=== PATIENT | female | born 1965 | race Caucasian/White ===

== ENCOUNTER 2020-08-13 18:22 | Inpatient (IN) | payer OTHER ==
[2020-08-13] MEDS ORDERED: THIAMINE 100 MG/ML 2 ML VIAL IM STA (18:47)
[2020-08-13] MEDS ORDERED: SODIUM CHLORIDE 0.9% 1,000 ML IV STA (18:47)
--- NOTE | 2020-08-13 18:52 | ED ---
General Adult HPI - General Chief complaint: Alcohol Stated complaint: ETOH Time Seen by Provider: 08/13/20 18:33 Source: patient, EMS Mode of arrival: EMS Limitations: no limitations - History of Present Illness Initial comments: Dictation was produced using [employer] dictation software. please excuse any grammatical, word or spelling errors. This patient was cared for during a federal and state declared state of emergency secondary to Covid 19 Chief Complaint: 55-year-old female presents with EtOH intoxication History of Present Illness: Patient is 55-year-old female she presents today with EtOH intoxication. Patient tried to check in at [facility] re[facility] however she had a really high EtOH level. They redirected her to the emergency department. Patient states he drinks heavily daily. She drinks, supine of vodka daily. Patient denies ever having had alcohol withdrawals in the past. She otherwise feels well. She has no pain complaint. The ROS documented in this emergency department record has been reviewed and confirmed by me. Those systems with pertinent positive or negative responses have been documented in the HPI. All other systems are other negative and/or noncontributory. PHYSICAL EXAM: General Impression: Alert and oriented x3, not in acute distress, inebriated HEENT: Normocephalic atraumatic, extra-ocular movements intact, pupils equal and reactive to light bilaterally, mucous membranes moist. Cardiovascular: Heart regular rate and rhythm Chest: Able to complete full sentences, no retractions, no tachypnea Abdomen: abdomen soft, non-tender, non-distended, no organomegaly Musculoskeletal: Pulses present and equal in all extremities, no peripheral edema Motor: no focal deficits noted Neurological: CN II-XII grossly intact, no focal motor or sensory deficits noted Skin: Intact with no visualized rashes Psych: Normal affect and mood ED course: 55-year-old female presents with acute EtOH intoxication. Signs upon arrival shows findings within acceptable limits. Physical examination is benign. Laboratory evaluation obtained. Mild leukopenia 2.7. Platelets of 30. Metabolic panel is obtained. Magnesium 1.1. Serum alcohol 351. Patient given intravenous fluids. Patient given magnesium supplementation. Patient will be admitted for alcohol intoxication. Case is discussed with Renata Greer was willing to accept patients care on behalf of [facility] hospitalist group. CIWA protocol ordered and Ativan total, ordered. she is agreeable with admission. - Related Data Home Medications Medication Instructions Recorded Confirmed Levothyroxine Sodium [Synthroid] 225 mcg PO QAM 08/13/20 08/13/20 Allergies Allergy/AdvReac Type Severity Reaction Status Date / Time No Known Allergies Allergy Verified 08/13/20 19:25 Review of Systems ROS Statement: Those systems with pertinent positive or pertinent negative responses have been documented in the HPI. ROS Other: All systems not noted in ROS Statement are negative. Past Medical History Past Medical History: No Reported History History of Any Multi-Drug Resistant Organisms: None Reported Past Surgical History: Appendectomy, Section Smoking Status: Never smoker Past Alcohol Use History: Abuse, Daily Past Drug Use History: None Reported General Exam Limitations: no limitations Course Vital Signs 08/13/20 18:28 Temperature 98.5 F Pulse Rate 67 Respiratory 18 Rate Blood Pressure 139/81 O2 Sat by Pulse 98 Oximetry Medical Decision Making - Lab Data Result diagrams: 08/13/20 19:11 08/13/20 19:11 Lab Results 08/13/20 08/13/20 Range/Units 19:11 19:11 WBC 3.7 L (3.8-10.6) k/uL RBC 4.47 (3.80-5.40) m/uL Hgb 14.2 (11.4-16.0) gm/dL Hct 43.4 (34.0-46.0) % MCV 97.0 (80.0-100.0) fL MCH 31.7 (25.0-35.0) pg MCHC 32.7 (31.0-37.0) g/dL RDW 14.1 (11.5-15.5) % Plt Count 30 L (150-450) k/uL Neutrophils % 55 % Lymphocytes % 32 % Monocytes % 7 % Eosinophils % 2 % Basophils % 2 % Neutrophils # 2.1 (1.3-7.7) k/uL Lymphocytes # 1.2 (1.0-4.8) k/uL Monocytes # 0.3 (0-1.0) k/uL Eosinophils # 0.1 (0-0.7) k/uL Basophils # 0.1 (0-0.2) k/uL Manual Slide Review Performed Poikilocytosis (manual Present Anisocytosis (manual) Present Sodium 142 (137-145) mmol/L Potassium 4.2 (3.5-5.1) mmol/L Chloride 108 H (98-107) mmol/L Carbon Dioxide 22 (22-30) mmol/L Anion Gap 12 mmol/L BUN 9 (7-17) mg/dL Creatinine 0.62 (0.52-1.04) mg/dL Est GFR (CKD-EPI)AfAm >90 (>60 ml/min/1.73 sqM) Est GFR (CKD-EPI)NonAf >90 (>60 ml/min/1.73 sqM) Glucose 94 (74-99) mg/dL Calcium 7.8 L (8.4-10.2) mg/dL Magnesium 1.1 L (1.6-2.3) mg/dL Total Bilirubin 1.8 H (0.2-1.3) mg/dL AST 162 H (14-36) U/L ALT 29 (4-34) U/L Alkaline Phosphatase 165 H (38-126) U/L Total Protein 8.0 (6.3-8.2) g/dL Albumin 4.0 (3.5-5.0) g/dL Lipase 270 (23-300) U/L Serum Alcohol 351 H* mg/dL Disposition Clinical Impression: Alcoholic intoxication Disposition: ADMITTED IP TO THIS [facility] Condition: Fair Referrals: Roshan Mcfarland DO [Primary Care Provider] - 1-2 days Decision Time: 21:14
[2020-08-13 19:56] LABS: ALT 29 U/L (4-34); AST 162 U/L (14-36); African American GFR (CKD) >90 (>60 ml/min/1.73 sqM); Alkaline Phosphatase 165 U/L (38-126); Anion Gap 12 mmol/L; Blood Urea Nitrogen 9 mg/dL (7-17); Calcium 7.8 mg/dL (8.4-10.2); Carbon Dioxide 22 mmol/L (22-30); Chloride 108 mmol/L (98-107); Glucose 94 mg/dL (74-99); Lipase 270 U/L (23-300); Magnesium 1.1 mg/dL (1.6-2.3); Non-African American GFR(CKD) >90 (>60 ml/min/1.73 sqM); Potassium 4.2 mmol/L (3.5-5.1); Sodium 142 mmol/L (137-145); Total Bilirubin 1.8 mg/dL (0.2-1.3)
[2020-08-13 20:18] LABS: Alcohol 351 mg/dL
[2020-08-13 20:30] LABS: Basophils # (A) 0.1 k/uL (0-0.2); Basophils % (A) 2 %; Eosinophils # (A) 0.1 k/uL (0-0.7); Eosinophils % (A) 2 %; HCT 43.4 % (34.0-46.0); HGB 14.2 gm/dL (11.4-16.0); Lymphocytes # (A) 1.2 k/uL (1.0-4.8); Lymphocytes % (A) 32 %; MCH 31.7 pg (25.0-35.0); MCHC 32.7 g/dL (31.0-37.0); Mean Platelet Volume 9.3; Monocytes # (A) 0.3 k/uL (0-1.0); Monocytes % (A) 7 %; Neutrophils # (A) 2.1 k/uL (1.3-7.7); Neutrophils % (A) 55 %; RBC 4.47 m/uL (3.80-5.40); RDW 14.1 % (11.5-15.5); WBC 3.7 k/uL (3.8-10.6)
[2020-08-13 21:06] LABS: Anisocytosis (M) Present; Poikilocytosis (M) Present
[2020-08-13 21:07] LABS: Platelet Count 30 k/uL (150-450)
[2020-08-13] MEDS ORDERED: NALOXONE 0.4 MG/ML 1 ML VIAL IV PRN (21:14)
[2020-08-13] MEDS: MAGNESIUM SULFATE-D5W PMX 1 GM in DEXTROSE/WATER 1 100ML.BAG IVPB SCH (22:50)
[2020-08-14] MEDS: SODIUM CHLORIDE 0.9% 1,000 ML IV SCH ×3 (00:28→17:24)
[2020-08-14] MEDS: MAGNESIUM SULFATE-D5W PMX 1 GM in DEXTROSE/WATER 1 100ML.BAG IVPB SCH ×4 (00:29→13:25)
[2020-08-14] MEDS: LEVOTHYROXINE 75 MCG TAB PO SCH (06:28)
[2020-08-14] MEDS: THIAMINE 100 MG TAB PO SCH ×2 (08:16→17:23)
[2020-08-14] MEDS: LORazepam 2 MG/ML INJ IV PRN ×3 (12:53→22:08)
[2020-08-14 13:24] LABS: African American GFR (CKD) >90 (>60 ml/min/1.73 sqM); Anion Gap 11 mmol/L; Blood Urea Nitrogen 7 mg/dL (7-17); Carbon Dioxide 21 mmol/L (22-30); Chloride 103 mmol/L (98-107); Glucose 114 mg/dL (74-99); Potassium 4.2 mmol/L (3.5-5.1); Sodium 135 mmol/L (137-145)
[2020-08-14 13:25] LABS: Calcium 7.3 mg/dL (8.4-10.2); Non-African American GFR(CKD) >90 (>60 ml/min/1.73 sqM)
--- NOTE | 2020-08-14 21:29 | P.HPIM ---
History of Present Illness H&P Date: 08/14/20 Patient is a 55-year-old female with a known history of withdrawal seizures, bipolar disorder, daily alcohol abuse, drinks a pint of vodka daily and hypothyroidism presents to ER with alcohol intoxication. Patient try to check in at [facility] however she had a really high alcohol level. They directed her to the emergency room. Patient does drink on a daily basis. Denied any chest pain or shortness breath. No nausea vomiting or abdominal pain or diarrhea. Laboratory data showed WBC 3.7, platelets 30 and hemoglobin 14.2 Sodium 142, potassium 4.2, calcium 7.8, magnesium 1.1, bilirubin 1.8, AST 162 and ALT 29 Alk phos 165 total alcohol level 351 Review of Systems Constitutional: Patient denies any fever or chills . No generalized weakness or weight loss. Abdomen: Patient denied nausea vomiting and diarrhea and abdominal pain. Cardiovascular: Patient denies any chest pain or short of breath no palpitations. Respiratory: patient denied any cough or sputum production. No shortness of breath Neurologic: Patient denied any numbness or tingling headache. Musculoskeletal: Patient denies any complaints of joint swelling or deformity. Complete review of systems could not be obtained from the patient. 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 Past Drug Use History: None Reported - Past Family History Mother Family Medical History: Hypertension Father Family Medical History: No Reported History Medications and Allergies Home Medications Medication Instructions Recorded Confirmed Type Levothyroxine Sodium [Synthroid] 225 mcg PO QAM 08/13/20 08/13/20 History Allergies Allergy/AdvReac Type Severity Reaction Status Date / Time No Known Allergies Allergy Verified 08/13/20 19:25 Physical Exam Vitals: Vital Signs Temp Pulse Pulse Resp BP BP Pulse Ox 08/14/20 08:13 98.3 F 79 16 131/78 97 08/14/20 03:42 98.6 F 78 16 110/64 97 08/13/20 23:40 98 F 72 16 117/72 98 08/13/20 22:51 98.1 F 73 18 111/82 98 08/13/20 21:25 71 16 105/63 99 08/13/20 18:28 98.5 F 67 18 139/81 98 Intake and Output 08/13/20 08/14/20 08/14/20 22:59 06:59 14:59 Other: Voiding Method Toilet # Voids 1 1 1 Weight 61.235 kg PHYSICAL EXAMINATION: Patient is lying in the bed comfortably, no acute distress, awake alert and oriented.. HEENT: Normocephalic. Neck is supple. Pupils reactive. Nostrils clear. Oral cavity is moist. Ears reveal no drainage. Patient is lethargic and drowsy. Neck reveals no JVD, carotid bruits, or thyromegaly. CHEST EXAMINATION: Trachea is central. Symmetrical expansion. Bibasilar diminished air entry. Lung brito clear to auscultation and percussion. CARDIAC: Normal S1, S2 with no gallops. No murmurs ABDOMEN: Soft. Bowel sounds normal. No organomegaly. No abdominal bruits. Extremities: reveal no edema. No clubbing or cyanosis Neurologically awake, alert, oriented x2-3 with well-coordinated movements. No focal deficits noted Skin: No rash or skin lesions. Psychiatric: Coperative. Nonsuicidal Musculoskeletal: No joint swelling or deformity. Normal range of motion. Results CBC & Chem 7: 08/13/20 19:11 08/14/20 12:45 Labs: Abnormal Lab Results - Last 24 Hours (Table) 08/13/20 08/13/20 Range/Units 19:11 19:11 WBC 3.7 L (3.8-10.6) k/uL Plt Count 30 L (150-450) k/uL Chloride 108 H (98-107) mmol/L Calcium 7.8 L (8.4-10.2) mg/dL Magnesium 1.1 L (1.6-2.3) mg/dL Total Bilirubin 1.8 H (0.2-1.3) mg/dL AST 162 H (14-36) U/L Alkaline Phosphatase 165 H (38-126) U/L Serum Alcohol 351 H* mg/dL Thrombosis Risk Factor Assmnt - DVT/VTE Prophylaxis DVT/VTE Prophylaxis: Mechanical Prophylaxis ordered - Choose All That Apply Any of the Below Risk Factors Present?: Yes Each Factor Represents 1 point: Age 41-60 years Other Risk Factors: No Other congenital or acquired thrombophilia - If yes, enter type in comment: No Thrombosis Risk Factor Assessment Total Risk Factor Score: 1 Thrombosis Risk Factor Assessment Level: Low Risk Assessment and Plan Assessment: Acute alcohol intoxication Hypomagnesemia Alcoholic hepatitis with elevated liver enzymes Severe alcohol abuse with 1 pint of vodka daily. Neutropenia and thrombocytopenia likely due to alcohol abuse. Cannot rule out underlying hematological abnormality. DVT prophylaxis with SCDs due to thrombocytopenia Plan: Patient will be continued on IV hydration with normal saline and continue with thiamine and multivitamins and monitor for alcohol withdrawal symptoms. Continue to follow closely and further recommendations based on the clinical course. Time with Patient: Greater than 30
[2020-08-15] MEDS: LORazepam 2 MG/ML INJ IV PRN ×3 (00:21→06:44)
[2020-08-15] MEDS: SODIUM CHLORIDE 0.9% 1,000 ML IV SCH ×3 (03:31→23:38)
[2020-08-15] MEDS: LEVOTHYROXINE 75 MCG TAB PO SCH (05:39)
[2020-08-15 06:09] LABS: Appearance,Urine Cloudy (Clear); Bacteria,Urine Rare /hpf; Bilirubin,Urine Negative (Negative); Blood,Urine Small (Negative); Color,Urine Yellow; Glucose,Urine (UA) Negative (Negative); Ketones,Urine Negative (Negative); Leukocyte Esterase,Urine Large (Negative); Nitrite,Urine Negative (Negative); Protein,Urine Negative (Negative); RBC,Urine 3 /hpf (0-5); Specific Gravity,Urine 1.008 (1.001-1.035); Squamous Epithelial Cell,Urine 3 /hpf (0-4); Urobilinogen,Urine <2.0 mg/dL (<2.0); WBC,Urine 36 /hpf (0-5)
[2020-08-15] MEDS: THIAMINE 100 MG TAB PO SCH ×2 (09:21→17:06)
[2020-08-15] MEDS: MULTIVITAMINS, THERA 1 EACH TAB PO SCH (09:21)
[2020-08-16] MEDS: LORazepam 2 MG/ML INJ IV PRN ×9 (01:35→21:51)
[2020-08-16] MEDS: LEVOTHYROXINE 75 MCG TAB PO SCH (05:25)
[2020-08-16] MEDS: MULTIVITAMINS, THERA 1 EACH TAB PO SCH (10:01)
[2020-08-16] MEDS: THIAMINE 100 MG TAB PO SCH ×2 (10:01→17:37)
[2020-08-16] MEDS: SODIUM CHLORIDE 0.9% 1,000 ML IV SCH ×2 (10:13→21:51)
--- NOTE | 2020-08-16 10:30 | P.PN ---
Subjective Progress Note Date: 08/15/20 Patient is a 55-year-old female with a known history of withdrawal seizures, bipolar disorder, daily alcohol abuse, drinks a pint of vodka daily and hypothyroidism presents to ER with alcohol intoxication. Patient try to check in at [facility] however she had a really high alcohol level. They directed her to the emergency room. Patient does drink on a daily basis. Denied any chest pain or shortness breath. No nausea vomiting or abdominal pain or diarrhea. Laboratory data showed WBC 3.7, platelets 30 and hemoglobin 14.2 Sodium 142, potassium 4.2, calcium 7.8, magnesium 1.1, bilirubin 1.8, AST 162 and ALT 29 Alk phos 165 total alcohol level 351 08/15/2020 Patient is currently lying in the bed comfortably. Talking To herself without now or in the room. Patient is having visual hallucinations. Able tablet to the bathroom without support. Patient has been up blood. No chest pain or shortness of breath. Continued on alcohol withdrawal protocol. No nausea vomiting or diarrhea. Current medications reviewed. Objective - Vital Signs Vital signs: Vital Signs Temp 98 F 08/15/20 14:54 Pulse 80 08/15/20 14:54 Resp 16 08/15/20 14:54 BP 149/90 08/15/20 14:54 Pulse Ox 98 08/15/20 14:54 Intake & Output 08/15/20 08/15/20 08/16/20 06:59 18:59 06:59 Intake Total 240 Balance 240 Intake: Oral 240 Other: Voiding Method Bedside Commode Bedside Commode Diaper # Voids 1 1 - Exam PHYSICAL EXAMINATION: Patient is lying in the bed comfortably, no acute distress, awake alert but disoriented and hallucinating... HEENT: Normocephalic. Neck is supple. Pupils reactive. Nostrils clear. Oral cavity is moist. Ears reveal no drainage. Neck reveals no JVD, carotid bruits, or thyromegaly. CHEST EXAMINATION: Trachea is central. Symmetrical expansion. Lung brito clear to auscultation and percussion. CARDIAC: Normal S1, S2 with no gallops. No murmurs ABDOMEN: Soft. Bowel sounds normal. No organomegaly. No abdominal bruits. Extremities: reveal no edema. No clubbing or cyanosis Neurologically awake, alert, oriented x2 with well-coordinated movements. No focal deficits noted Skin: No rash or skin lesions. Psychiatric: Coperative. Could not be assessed completely Musculoskeletal: No joint swelling or deformity. Normal range of motion. - Labs CBC & Chem 7: 08/13/20 19:11 08/14/20 12:45 Labs: Abnormal Lab Results - Last 24 Hours (Table) 08/15/20 Range/Units 05:50 Urine Appearance Cloudy H (Clear) Urine Blood Small H (Negative) Ur Leukocyte Esterase Large H (Negative) Urine WBC 36 H (0-5) /hpf Urine Bacteria Rare H (None) /hpf Assessment and Plan Assessment: Acute alcohol intoxication Visual hallucinations Acute alcohol withdrawal symptoms Hypomagnesemia Alcoholic hepatitis with elevated liver enzymes Severe alcohol abuse with 1 pint of vodka daily. Neutropenia and thrombocytopenia likely due to alcohol abuse. Cannot rule out underlying hematological abnormality. DVT prophylaxis with SCDs due to thrombocytopenia Plan: Patient will be continued on IV hydration with normal saline and continue with thiamine and multivitamins and monitor for alcohol withdrawal symptoms. Continue to follow closely and further recommendations based on the clinical course. Time with Patient: Greater than 30
--- NOTE | 2020-08-17 00:17 | P.PN ---
Subjective Progress Note Date: 08/16/20 Principal diagnosis: Acute alcohol withdrawal symptoms. Delirium Patient is a 55-year-old female with a known history of withdrawal seizures, bipolar disorder, daily alcohol abuse, drinks a pint of vodka daily and hypothyroidism presents to ER with alcohol intoxication. Patient try to check in at [facility] however she had a really high alcohol level. They directed her to the emergency room. Patient does drink on a daily basis. Denied any chest pain or shortness breath. No nausea vomiting or abdominal pain or diarrhea. Laboratory data showed WBC 3.7, platelets 30 and hemoglobin 14.2 Sodium 142, potassium 4.2, calcium 7.8, magnesium 1.1, bilirubin 1.8, AST 162 and ALT 29 Alk phos 165 total alcohol level 351 08/15/2020 Patient is currently lying in the bed comfortably. Talking To herself without now or in the room. Patient is having visual maldonado ucinations. Able tablet to the bathroom without support. Patient has been up blood. No chest pain or shortness of breath. Continued on alcohol withdrawal protocol. No nausea vomiting or diarrhea. 08/16/2020 Patient still having symptoms and requiring IV Ativan. No acute distress. No episodes of nausea or vomiting. No abdominal pain. No diarrhea. Current medications reviewed. Objective - Vital Signs Vital signs: Vital Signs Temp 97.8 F 08/16/20 15:15 Pulse 72 08/16/20 15:15 Resp 16 08/16/20 15:15 BP 151/96 08/16/20 15:15 Pulse Ox 99 08/16/20 15:15 Intake & Output 08/16/20 08/16/20 08/17/20 06:59 18:59 06:59 Intake Total 360 Balance 360 Intake: Intake, IV Titration 50 Amount cefTRIAXone 1 gm In 50 Sodium Chloride 0.9% 50 ml @ 100 mls/hr IVPB Q24HR [facility] Rx#:[id number] Oral 310 Other: Voiding Method Diaper Diaper # Voids 3 1 - Exam PHYSICAL EXAMINATION: Patient is lying in the bed comfortably, no acute distress, awake alert but disoriented and hallucinating... HEENT: Normocephalic. Neck is supple. Pupils reactive. Nostrils clear. Oral cavity is moist. Ears reveal no drainage. Neck reveals no JVD, carotid bruits, or thyromegaly. CHEST EXAMINATION: Trachea is central. Symmetrical expansion. Lung brito clear to auscultation and percussion. CARDIAC: Normal S1, S2 with no gallops. No murmurs ABDOMEN: Soft. Bowel sounds normal. No organomegaly. No abdominal bruits. Extremities: reveal no edema. No clubbing or cyanosis Neurologically awake, alert, oriented x2 with well-coordinated movements. No focal deficits noted Skin: No rash or skin lesions. Psychiatric: Coperative. Could not be assessed completely Musculoskeletal: No joint swelling or deformity. Normal range of motion. - Labs CBC & Chem 7: 08/13/20 19:11 08/14/20 12:45 Labs: Microbiology - Last 24 Hours (Table) 08/15/20 05:50 Urine Culture - Preliminary Urine,Clean Catch Assessment and Plan Assessment: Acute alcohol intoxication Visual hallucinations Acute alcohol withdrawal symptoms Hypomagnesemia Alcoholic hepatitis with elevated liver enzymes Severe alcohol abuse with 1 pint of vodka daily. Neutropenia and thrombocytopenia likely due to alcohol abuse. Cannot rule out underlying hematological abnormality. DVT prophylaxis with SCDs due to thrombocytopenia Plan: Patient will be continued on IV hydration with normal saline and continue with thiamine and multivitamins and monitor for alcohol withdrawal symptoms. Continue to follow closely and further recommendations based on the clinical course.
[2020-08-17] MEDS: SODIUM CHLORIDE 0.9% 1,000 ML IV SCH ×2 (05:42→16:23)
[2020-08-17] MEDS: LEVOTHYROXINE 75 MCG TAB PO SCH (05:45)
[2020-08-17 05:55] LABS: HCT 40.2 % (34.0-46.0); HGB 13.4 gm/dL (11.4-16.0); MCH 32.7 pg (25.0-35.0); MCHC 33.2 g/dL (31.0-37.0); MCV 98.5 fL (80.0-100.0); Mean Platelet Volume 10.6; RBC 4.08 m/uL (3.80-5.40); WBC 3.8 k/uL (3.8-10.6)
[2020-08-17 06:06] LABS: Platelet Count 32 k/uL (150-450)
[2020-08-17 06:39] LABS: Eosinophils # (M) 0.11 k/uL (0-0.7); Lymphocytes # (M) 0.84 k/uL (1.0-4.8); Monocytes # (M) 0.61 k/uL (0-1.0); Neutrophils # (M) 2.24 k/uL (1.3-7.7); Neutrophils % (M) 59 %; Nucleated Red Blood Cells 0 /100 WBC (0-0); Total Cells Counted 100
[2020-08-17 10:06] LABS: African American GFR (CKD) 113.8 (60.0-200.0); Anion Gap 15.3 mmol/L (4.00-12.00); BUN/Creat Ratio 8.57 Ratio (12.00-20.00); Calcium 7.7 mg/dL (8.7-10.3); Carbon Dioxide 18.7 mmol/L (21.6-31.8); Non-African American GFR(CKD) 98.2 (60.0-200.0); Potassium 2.8 mmol/L (3.5-5.5)
[2020-08-17] MEDS: THIAMINE 100 MG TAB PO SCH ×2 (11:07→16:23)
[2020-08-17] MEDS: MULTIVITAMINS, THERA 1 EACH TAB PO SCH (11:07)
--- NOTE | 2020-08-17 12:49 | P.PN ---
Subjective Acute alcohol withdrawal symptoms. Delirium Patient is a 55-year-old female with a known history of withdrawal seizures, bipolar disorder, daily alcohol abuse, drinks a pint of vodka daily and hypothyroidism presents to ER with alcohol intoxication. Patient try to check in at [facility] however she had a really high alcohol level. They directed her to the emergency room. Patient does drink on a daily basis. Denied any chest pain or shortness breath. No nausea vomiting or abdominal pain or diarrhea. Laboratory data showed WBC 3.7, platelets 30 and hemoglobin 14.2 Sodium 142, potassium 4.2, calcium 7.8, magnesium 1.1, bilirubin 1.8, AST 162 and ALT 29 Alk phos 165 total alcohol level 351 08/15/2020 Patient is currently lying in the bed comfortably. Talking To herself without now or in the room. Patient is having visual hallucinations. Able tablet to the bathroom without support. Patient has been up blood. No chest pain or shortness of breath. Continued on alcohol withdrawal protocol. No nausea vomiting or diarrhea. 08/16/2020 Patient still having symptoms and requiring IV Ativan. No acute distress. No episodes of nausea or vomiting. No abdominal pain. No diarrhea. 08/17/2020 Patient is still having withdrawals although received Ativan yesterday. Patient appears to have some chronic encephalopathy from alcoholism. Unsure whether patient has Wernicke's encephalopathy. Patient is a definitely confused which appears to be her baseline. May not improve with the high doses of thiamine. Patient is quite weak does have significant muscle wasting was evaluated by physical therapy and occupational therapy will require placement in subacute rehabilitation,case management is evaluating for her placement. review of systems: Confused, not reliable All inpatient medications were reviewed and appropriate changes in these medications as dictated in the interval history and assessment and plan. Objective - Vital Signs Vital signs: Vital Signs Temp 97.5 F L 08/17/20 12:32 Pulse 80 08/17/20 12:32 Resp 16 08/17/20 12:32 BP 111/77 08/17/20 12:32 Pulse Ox 99 08/17/20 12:32 Intake & Output 08/16/20 08/17/20 08/17/20 18:59 06:59 18:59 Intake Total 2290 Balance 2290 Intake: Intake, IV Titration 1700 Amount Sodium Chloride 0.9% 1, 1600 000 ml @ 100 mls/hr IV . Q10H [facility] Rx#:[id number] cefTRIAXone 1 gm In 100 Sodium Chloride 0.9% 50 ml @ 100 mls/hr IVPB Q24HR [facility] Rx#:[id number] Oral 590 Other: Voiding Method Diaper Bedpan Bedpan Diaper Diaper Incontinent Incontinent # Voids 1 3 - Exam PHYSICAL EXAMINATION: GENERAL: The patient is alert and oriented x2, not in any acute distress. Well developed, well nourished. HEENT: Pupils are round and equally reacting to light. EOMI. No scleral icterus. No conjunctival pallor. Normocephalic, atraumatic. No pharyngeal erythema. No thyromegaly. CARDIOVASCULAR: S1 and S2 present. No murmurs, rubs, or gallops. PULMONARY: Chest is clear to auscultation, no wheezing or crackles. ABDOMEN: Soft, nontender, nondistended, normoactive bowel sounds. No palpable organomegaly. MUSCULOSKELETAL: No joint swelling or deformity. EXTREMITIES: No cyanosis, clubbing, or pedal edema. NEUROLOGICAL: Gross neurological examination did not reveal any focal deficits. as have significant generalized weakness and muscle atrophy does appear to have some chronic encephalopathy. Mild tremor SKIN: No rashes. - Labs CBC & Chem 7: 08/17/20 05:17 08/17/20 05:17 Labs: Abnormal Lab Results - Last 24 Hours (Table) 08/17/20 08/17/20 Range/Units 05:17 05:17 Plt Count 32 L (150-450) k/uL Lymphocytes # (Manual) 0.84 L (1.0-4.8) k/uL Potassium 2.8 L (3.5-5.5) mmol/L Carbon Dioxide 18.7 L (21.6-31.8) mmol/L Anion Gap 15.30 H (4.00-12.00) mmol/L BUN 6.0 L (9.0-27.0) mg/dL BUN/Creatinine Ratio 8.57 L (12.00-20.00) Ratio Calcium 7.7 L (8.7-10.3) mg/dL Microbiology - Last 24 Hours (Table) 08/15/20 05:50 Urine Culture - Preliminary Urine,Clean Catch Gram Neg Bacilli Assessment and Plan Plan: Acute alcohol intoxication Visual hallucinationsAnita alcohol withdrawal Acute alcohol 1 patient is on Ativan CIWA protocol -Possible chronic encephalopathy secondary to alcoholism. Hypomagnesemia: Will be replaced seconded all call us -Hypokalemia secondary to hypomagnesemia and IV fluids, this will be replaced as well -Severe generalized weakness: Secondary to deconditioning for which patient will need subacute rehabitation Alcoholic hepatitis with elevated liver enzymes Severe alcohol abuse with 1 pint of vodka daily. Neutropenia and thrombocytopenia likely due to alcohol abuse. DVT prophylaxis with SCDs due to thrombocytopenia possibility of discharge tomorrow to subacute rehabilitation
[2020-08-18] MEDS: SODIUM CHLORIDE 0.9% 1,000 ML IV SCH ×3 (05:01→23:26)
[2020-08-18] MEDS: LEVOTHYROXINE 75 MCG TAB PO SCH (06:03)
[2020-08-18 06:30] LABS: HGB 12.5 gm/dL (11.4-16.0); MCH 32.5 pg (25.0-35.0); MCHC 32.8 g/dL (31.0-37.0); RBC 3.84 m/uL (3.80-5.40); RDW 14.4 % (11.5-15.5); WBC 3.6 k/uL (3.8-10.6)
[2020-08-18 06:38] LABS: Platelet Count 45 k/uL (150-450)
[2020-08-18] MEDS: THIAMINE 100 MG TAB PO SCH ×2 (09:01→17:58)
[2020-08-18] MEDS: MULTIVITAMINS, THERA 1 EACH TAB PO SCH (09:01)
[2020-08-18 09:43] LABS: African American GFR (CKD) 113.8 (60.0-200.0); Anion Gap 10.8 mmol/L (4.00-12.00); BUN/Creat Ratio 7.14 Ratio (12.00-20.00); Calcium 7.6 mg/dL (8.7-10.3); Carbon Dioxide 19.2 mmol/L (21.6-31.8); Non-African American GFR(CKD) 98.2 (60.0-200.0)
--- NOTE | 2020-08-18 15:52 | P.PN ---
Subjective Acute alcohol withdrawal symptoms. Delirium Patient is a 55-year-old female with a known history of withdrawal seizures, bipolar disorder, daily alcohol abuse, drinks a pint of vodka daily and hypothyroidism presents to ER with alcohol intoxication. Patient [facility] however she had a really high alcohol level. They directed her to the emergency room. Patient does drink on a daily basis. Denied any chest pain or shortness breath. No nausea vomiting or abdominal pain or diarrhea. Laboratory data showed WBC 3.7, platelets 30 and hemoglobin 14.2 Sodium 142, potassium 4.2, calcium 7.8, magnesium 1.1, bilirubin 1.8, AST 162 and ALT 29 Alk phos 165 total alcohol level 351 08/15/2020 Patient is currently lying in the bed comfortably. Talking To herself without now or in the room. Patient is having visual hallucinations. Able tablet to the bathroom without support. Patient has been up blood. No chest pain or shortness of breath. Continued on alcohol withdrawal protocol. No nausea vomiting or diarrhea. 08/16/2020 Patient still having symptoms and requiring IV Ativan. No acute distress. No episodes of nausea or vomiting. No abdominal pain. No diarrhea. 08/17/2020 Patient is still having withdrawals although received Ativan yesterday. Patient appears to have some chronic encephalopathy from alcoholism. Unsure whether patient has Wernicke's encephalopathy. Patient is a definitely confused which appears to be her baseline. May not improve with the high doses of thiamine. Patient is quite weak does have significant muscle wasting was evaluated by physical therapy and occupational therapy will require placement in subacute rehabilitation,case management is evaluating for her placement. 08/18/2020 Patient is little bit more appropriate today compared to yesterday. Considering her Estrace assessment there was a concern that patient cannot make her own decision. Patient the is significantly weak and will need to be discharged to subacute rehabitation. As there is a concern that patient cannot make her own decision psychiatry was consulted review of systems: Confused, not reliable All inpatient medications were reviewed and appropriate changes in these medications as dictated in the interval history and assessment and plan. Objective - Vital Signs Vital signs: Vital Signs Temp 97.8 F 08/18/20 12:22 Pulse 67 08/18/20 12:22 Resp 16 08/18/20 12:22 BP 124/78 08/18/20 12:22 Pulse Ox 95 08/18/20 12:22 Intake & Output 08/17/20 08/18/20 08/18/20 18:59 06:59 18:59 Intake Total 1250 1300 800 Balance 1250 1300 800 Intake: Intake, IV Titration 850 300 800 Amount Sodium Chloride 0.9% 1, 800 300 800 000 ml @ 100 mls/hr IV . Q10H ANNA Rx#:[id number] cefTRIAXone 1 gm In 50 Sodium Chloride 0.9% 50 ml @ 100 mls/hr IVPB Q24HR ANNA Rx#:[id number] Oral 400 1000 Other: Voiding Method Bedpan Bedpan Bedpan Diaper Diaper Diaper Incontinent Incontinent Incontinent # Voids 2 - Exam PHYSICAL EXAMINATION: GENERAL: The patient is alert and oriented x2-3, not in any acute distress. Well developed, well nourished. HEENT: Pupils are round and equally reacting to light. EOMI. No scleral icterus. No conjunctival pallor. Normocephalic, atraumatic. No pharyngeal erythema. No thyromegaly. CARDIOVASCULAR: S1 and S2 present. No murmurs, rubs, or gallops. PULMONARY: Chest is clear to auscultation, no wheezing or crackles. ABDOMEN: Soft, nontender, nondistended, normoactive bowel sounds. No palpable organomegaly. MUSCULOSKELETAL: No joint swelling or deformity. EXTREMITIES: No cyanosis, clubbing, or pedal edema. NEUROLOGICAL: Gross neurological examination did not reveal any focal deficits. as have significant generalized weakness and muscle atrophy does appear to have some chronic encephalopathy. Mild tremor SKIN: No rashes. - Labs CBC & Chem 7: 08/18/20 05:51 08/18/20 05:51 Labs: Abnormal Lab Results - Last 24 Hours (Table) 08/18/20 08/18/20 Range/Units 05:51 05:51 WBC 3.6 L (3.8-10.6) k/uL Plt Count 45 L (150-450) k/uL Carbon Dioxide 19.2 L (21.6-31.8) mmol/L BUN 5.0 L (9.0-27.0) mg/dL BUN/Creatinine Ratio 7.14 L (12.00-20.00) Ratio Calcium 7.6 L (8.7-10.3) mg/dL Microbiology - Last 24 Hours (Table) 08/15/20 05:50 Urine Culture - Final Urine,Clean Catch Escherichia coli Assessment and Plan Plan: Acute alcohol intoxication Visual hallucinations secondary to alcohol withdrawal Alcohol withdrawal/delirium tremens patient is on Ativan CIWA protocol -Possible chronic encephalopathy secondary to alcoholism. Hypomagnesemia: Will be replaced seconded all call us -Hypokalemia secondary to hypomagnesemia and IV fluids, this will be replaced as well -Severe generalized weakness: Secondary to deconditioning for which patient will need subacute rehabitation Alcoholic hepatitis with elevated liver enzymes Severe alcohol abuse with 1 pint of vodka daily. Neutropenia and thrombocytopenia likely due to alcohol abuse. DVT prophylaxis with SCDs due to thrombocytopenia
[2020-08-19] MEDS: LEVOTHYROXINE 75 MCG TAB PO SCH (06:08)
[2020-08-19] MEDS: THIAMINE 100 MG TAB PO SCH ×2 (07:37→16:42)
[2020-08-19] MEDS: MULTIVITAMINS, THERA 1 EACH TAB PO SCH (07:37)
--- NOTE | 2020-08-19 10:35 | CONS ---
CONSULTATION DATE OF SERVICE: 08/18/2020 PURPOSE FOR CONSULTATION: Evaluate for altered mental status in the face of acute alcohol withdrawal. HISTORY OF PRESENT ILLNESS: Patient is a 55-year-old female. The patient provided some history, though she was not able to provide very accurate details. The remainder of the history was obtained from the medical record. She has long-term issues with alcohol dependence. It is reported that she has been drinking 1 pint of vodka per day. When I asked the patient her current use, she said she had been drinking regularly a half a pint per day +1 beer, though more recently that had increased to 1 pint per day plus a tall beer. She said she had been cutting down from that recently, though she was vague on specifics. Apparently, the patient had gone to [place] for admission, though was found to have an elevated blood alcohol level reported to be over 400. As such she was referred to this facility for detox. On admission, her alcohol level was 351. The patient does have a history of withdrawal related seizures. She has a diagnosis of bipolar disorder. The medical record indicates that she had not been on any psychotropic medications at home prior to this admission. She currently is maintained on an alcohol withdrawal protocol. It is noted that throughout the admission, the patient has shown signs of delirium. She has had apparent auditory hallucinations and has been observed pretty much every day, having periods where she has conversations when no one is in the room. With apparent auditory hallucinations. Vital signs have been relatively stable. Earlier on in her hospital stay, blood pressure has been up some, though generally her diastolic blood pressure has been in the normal range. It is noted that she has not shown more severe signs of detox such as elevated temperature or diaphoresis. She has required p.r.n. Ativan for elevated CIWA scores. There has been a question of the patient showing signs of chronic encephalopathy secondary to long-term alcohol use. She he has been in various rehabilitation programs in the past. She indicated to me that her longest period of sobriety was about a year and a half in 2012. She apparently has been in a long-term rehab facilities for time periods such as 6 months. Again, the details of these situations were sketchy. Also, the patient was not able to give a very reliable history about any psychiatric symptoms or issues that she may have been experiencing over the last few months. She lives with a significant other whom she says is her primary support. MENTAL STATUS: Patient was lying in bed with her head slightly up. She gave fair eye contact. Psychomotor activity was somewhat restless. She answered questions with brief responses. She did not say much. Her answers were generally in relationship to the questions asked, though the responses were fairly vague without details. Her affect was somewhat blunted. She seemed to have a quiet calm disposition. She smiled a fair amount throughout the interview. Her mood was even. She did not appear to be significantly distressed. When I interviewed her, there was no indication of thought disorder. On cognitive exam, the patient was oriented to self. She was not able to respond to most orientation questions. She was able to say she was in the hospital in [place] though it took her about 30 seconds to complete that thought to be able to say she was actually in the hospital. Details about her recent history that she provided did not conform to what is documented in medical record. ASSESSMENT: This 55-year-old female has alcohol dependence and acute alcohol withdrawal. She is showing some signs of delirium, possibly related to underlying encephalopathy. She has not shown clear signs of delirium tremens. She likely shows some acute cognitive impairment related to Ativan doses that she has been receiving. At this point, there is not a need to initiate any psychotropic medications beyond what the current treatment is. The patient is being well managed for her acute withdrawal. Disposition remains a question. When I attempted to talk with the patient about options following the hospitalization, she did not seem to have much of a grasp of any planning beyond this hospital stay. There likely needs to be some coordination with her significant other. I will continue to follow. MMODL / IJN: [id number] /
[2020-08-19] MEDS: SODIUM CHLORIDE 0.9% 1,000 ML IV SCH ×2 (12:02→21:03)
--- NOTE | 2020-08-19 15:03 | P.PN ---
Subjective Acute alcohol withdrawal symptoms. Delirium Patient is a 55-year-old female with a known history of withdrawal seizures, bipolar disorder, daily alcohol abuse, drinks a pint of vodka daily and hypothyroidism presents to ER with alcohol intoxication. Patient [facility] to check in [facility] however she had a really high alcohol level. They directed her to the emergency room. Patient does drink on a daily basis. Denied any chest pain or shortness breath. No nausea vomiting or abdominal pain or diarrhea. Laboratory data showed WBC 3.7, platelets 30 and hemoglobin 14.2 Sodium 142, potassium 4.2, calcium 7.8, magnesium 1.1, bilirubin 1.8, AST 162 and ALT 29 Alk phos 165 total alcohol level 351 08/15/2020 Patient is currently lying in the bed comfortably. Talking To herself without now or in the room. Patient is having visual hallucinations. Able tablet to the bathroom without support. Patient has been up blood. No chest pain or shortness of breath. Continued on alcohol withdrawal protocol. No nausea vomiting or diarrhea. 08/16/2020 Patient still having symptoms and requiring IV Ativan. No acute distress. No episodes of nausea or vomiting. No abdominal pain. No diarrhea. 08/17/2020 Patient is still having withdrawals although received Ativan yesterday. Patient appears to have some chronic encephalopathy from alcoholism. Unsure whether patient has Wernicke's encephalopathy. Patient is a definitely confused which appears to be her baseline. May not improve with the high doses of thiamine. Patient is quite weak does have significant muscle wasting was evaluated by physical therapy and occupational therapy will require placement in subacute rehabilitation,case management is evaluating for her placement. 08/18/2020 Patient is little bit more appropriate today compared to yesterday. Considering her Estrace assessment there was a concern that patient cannot make her own decision. Patient the is significantly weak and will need to be discharged to subacute rehabitation. As there is a concern that patient cannot make her own decision psychiatry was consulted 10/19/2019 Patient overall clinically doing well at this time possibility of discharge tomorrow to subacute rehabilitation. Patient was evaluated by psychiatry. Constitutional: Denied any fatigue denied any fever. Cardio vascular: denied any chest pain, palpitations Gastrointestinal denied any nausea vomiting Pulmonary: Denied any shortness of breath cough Neurologic denied any new focal deficits All inpatient medications were reviewed and appropriate changes in these medications as dictated in the interval history and assessment and plan. Objective - Vital Signs Vital signs: Vital Signs Temp 98.0 F 08/19/20 12:01 Pulse 74 08/19/20 12:01 Resp 15 08/19/20 12:01 BP 133/84 08/19/20 12:01 Pulse Ox 96 08/19/20 12:01 Intake & Output 08/18/20 08/19/20 08/19/20 18:59 06:59 18:59 Intake Total 800 1200 Balance 800 1200 Intake: Intake, IV Titration 800 1200 Amount Sodium Chloride 0.9% 1, 800 1200 000 ml @ 100 mls/hr IV . Q10H ANNA Rx#:[id number] Other: Voiding Method Bedpan Bedpan Bedpan Diaper Diaper Diaper Incontinent Incontinent Incontinent # Voids 1 5 - Exam PHYSICAL EXAMINATION: GENERAL: The patient is alert and oriented x2-3, not in any acute distress. Well developed, well nourished. HEENT: Pupils are round and equally reacting to light. EOMI. No scleral icterus. No conjunctival pallor. Normocephalic, atraumatic. No pharyngeal erythema. No thyromegaly. CARDIOVASCULAR: S1 and S2 present. No murmurs, rubs, or gallops. PULMONARY: Chest is clear to auscultation, no wheezing or crackles. ABDOMEN: Soft, nontender, nondistended, normoactive bowel sounds. No palpable organomegaly. MUSCULOSKELETAL: No joint swelling or deformity. EXTREMITIES: No cyanosis, clubbing, or pedal edema. NEUROLOGICAL: Gross neurological examination did not reveal any focal deficits. as have significant generalized weakness and muscle atrophy does appear to have some chronic encephalopathy. Mild tremor SKIN: No rashes. - Labs CBC & Chem 7: 08/18/20 05:51 08/18/20 05:51 Assessment and Plan Plan: Acute alcohol intoxicationon admission Visual hallucinations secondary to alcohol withdrawal, resolved now Alcohol withdrawal/delirium tremens patient is on Ativan CIWA protocoldoesn't 3 no evidence of acute withdrawals at this time -Possible chronic encephalopathy secondary to alcoholism. -Severe generalized weakness: Secondary to deconditioning for which patient will need subacute rehabitation Alcoholic hepatitis with elevated liver enzymes alcohol abuse Neutropenia and thrombocytopenia likely due to alcohol abuse. DVT prophylaxis with SCDs due to thrombocytopenia
[2020-08-20] MEDS: SODIUM CHLORIDE 0.9% 1,000 ML IV SCH ×2 (01:43→14:01)
[2020-08-20] MEDS: LEVOTHYROXINE 75 MCG TAB PO SCH (05:43)
[2020-08-20 05:47] VITALS: RESP 16
[2020-08-20] MEDS: MULTIVITAMINS, THERA 1 EACH TAB PO SCH (07:57)
[2020-08-20] MEDS: THIAMINE 100 MG TAB PO SCH (07:57)
[2020-08-20 12:36] VITALS: BMI 19.3
[2020-08-20 13:56] VITALS: BP 133/89; PULSE 88; TEMP 98.4
--- NOTE | 2020-08-20 14:55 | P.DS ---
Providers Date of admission: 08/16/20 07:43 Attending physician: Keila Escobar Consults: 08/17/20 13:11 Consult Physician Routine Consulting Provider: Yousuf Alcaraz Reason/Comments: evaluate decision making capability Do you want consulting provider notified?: Already Contacted Primary care physician: Roshan Bhatt [facility] Course: Acute alcohol withdrawal symptoms. Delirium Patient is a 55-year-old female with a known history of withdrawal seizures, bipolar disorder, daily alcohol abuse, drinks a pint of vodka daily and hypothyroidism presents to ER with alcohol intoxication. Patient try to check in at [facility] however she had a really high alcohol level. They directed her to the emergency room. Patient does drink on a daily basis. Denied any chest pain or shortness breath. No nausea vomiting or abdominal pain or diarrhea. Laboratory data showed WBC 3.7, platelets 30 and hemoglobin 14.2 Sodium 142, potassium 4.2, calcium 7.8, magnesium 1.1, bilirubin 1.8, AST 162 and ALT 29 Alk phos 165 total alcohol level 351 08/15/2020 Patient is currently lying in the bed comfortably. Talking To herself without now or in the room. Patient is having visual hallucinations. Able tablet to the bathroom without support. Patient has been up blood. No chest pain or shortness of breath. Continued on alcohol withdrawal protocol. No nausea vomiting or diarrhea. 08/16/2020 Patient still having symptoms and requiring IV Ativan. No acute distress. No episodes of nausea or vomiting. No abdominal pain. No diarrhea. 08/17/2020 Patient is still having withdrawals although received Ativan yesterday. Patient appears to have some chronic encephalopathy from alcoholism. Unsure whether patient has Wernicke's encephalopathy. Patient is a definitely confused which appears to be her baseline. May not improve with the high doses of thiamine. Patient is quite weak does have significant muscle wasting was evaluated by physical therapy and occupational therapy will require placement in subacute rehabilitation,case management is evaluating for her placement. 08/18/2020 Patient is little bit more appropriate today compared to yesterday. Considering her Estrace assessment there was a concern that patient cannot make her own decision. Patient the is significantly weak and will need to be discharged to subacute rehabitation. As there is a concern that patient cannot make her own decision psychiatry was consulted 10/19/2019 Patient overall clinically doing well at this time possibility of discharge tomorrow to subacute rehabilitation. Patient was evaluated by psychiatry. 08/20/2020 Patient was evaluated by case management and the physical therapy and finally decision was made to discharge the patient home with home care please refer to c ase management documentation for further details. Patient doesn't have any withdrawals patient confusion improved significantly. Still has weakness and some chronic encephalopathy from alcoholism PHYSICAL EXAMINATION: GENERAL: The patient is alert and oriented x2-3, not in any acute distress. Well developed, well nourished. HEENT: Pupils are round and equally reacting to light. EOMI. No scleral icterus. No conjunctival pallor. Normocephalic, atraumatic. No pharyngeal erythema. No thyromegaly. CARDIOVASCULAR: S1 and S2 present. No murmurs, rubs, or gallops. PULMONARY: Chest is clear to auscultation, no wheezing or crackles. ABDOMEN: Soft, nontender, nondistended, normoactive bowel sounds. No palpable organomegaly. MUSCULOSKELETAL: No joint swelling or deformity. EXTREMITIES: No cyanosis, clubbing, or pedal edema. NEUROLOGICAL: Gross neurological examination did not reveal any focal deficits. as have significant generalized weakness and muscle atrophy does appear to have some chronic encephalopathy. Mild tremor SKIN: No rashes. Assessment and Plan Plan: Acute alcohol intoxicationon admission Visual hallucinations secondary to alcohol withdrawal, resolved now Alcohol withdrawal/delirium tremens no evidence of acute withdrawals at this time -Possible chronic encephalopathy secondary to alcoholism. -Severe generalized weakness: Secondary to deconditioning for which patient will need subacute rehabitation Alcoholic hepatitis with elevated liver enzymes alcohol abuse Neutropenia and thrombocytopenia likely due to alcohol abuse. Patient Condition at Discharge: Fair Plan - Discharge Summary Discharge Rx Participant: No New Discharge Prescriptions: New Multivitamins, Thera [Multivitamin (formulary)] 1 each PO DAILY #30 tab Thiamine [Vitamin B-1] 100 mg PO BID-W/MEALS #30 tab Continue Levothyroxine Sodium [Synthroid] 225 mcg PO QAM Discharge Medication List Levothyroxine Sodium [Synthroid] 225 mcg PO QAM 08/13/20 [History] Multivitamins, Thera [Multivitamin (formulary)] 1 each PO DAILY #30 tab 08/15/20 [Rx] Thiamine [Vitamin B-1] 100 mg PO BID-W/MEALS #30 tab 08/15/20 [Rx] Follow up Appointment(s)/Referral(s): Roshan Mcfarland DO [Primary Care Provider] - 3 Days (Office does not make appointments, patients are seen as walk-in only. please go to the office in 3 days for follow-up visit.) Patient Instructions/Handouts: Abuse of Alcohol (DC) Activity/Diet/Wound Care/Special Instructions: [place] [address] Discharge Disposition: TRANSFER TO SNF/ECF
== END 2020-08-20 16:12 | disposition home or self-care (01) | DRG 897 ==
LOC: EC 18:22 → 1SOBS 21:14 → OBSVTOIN 08-16 07:43 → 6NMEDSUR 08-16 22:35
PROVIDERS: ADMIT Internal Medicine; ATTEND Internal Medicine
DX: F10.231 Alcohol dependence with withdrawal delirium (principal); G31.2 Degeneration of nervous system due to alcohol; D69.59 Other secondary thrombocytopenia; E03.9 Hypothyroidism, unspecified; E83.42 Hypomagnesemia; F31.9 Bipolar disorder, unspecified; K70.10 Alcoholic hepatitis without ascites; D70.9 Neutropenia, unspecified; R53.81 Other malaise; Y90.8 Blood alcohol level of 240 mg/100 ml or more; G40.909 Epilepsy, unspecified, not intractable, without status epilepticus; F10.229 Alcohol dependence with intoxication, unspecified; Z79.890 Hormone replacement therapy; Z90.49 Acquired absence of other specified parts of digestive tract; Z98.891 History of uterine scar from previous surgery; Z82.49 Family history of ischemic heart disease and other diseases of the circulatory system
CPT/HCPCS: 36415; 80048; 80053; 80320; 81001; 83690; 83735; 85025; 85027; 87077; 87086; 87186; 96360; 96361; 96372; 99285